=== PATIENT | female | born 1970 | race Caucasian/White ===

== ENCOUNTER → 2016-11-08 | Outpatient (CLI) | payer OTHER | END | disposition home or self-care (01) | LOC: LAB 08:02 | PROVIDERS: ATTEND Internal Medicine | DX: D18.03 Hemangioma of intra-abdominal structures (principal) | CPT/HCPCS: 36415; 82565; 84520 ==

== ENCOUNTER → 2016-12-04 | Outpatient (CLI) | payer OTHER | END | disposition home or self-care (01) | LOC: LAB 07:36 | PROVIDERS: ATTEND Internal Medicine | DX: D18.03 Hemangioma of intra-abdominal structures (principal) | CPT/HCPCS: 36415; 82565; 84520 ==

== ENCOUNTER 2016-12-23 13:47 | Inpatient (IN) | payer OTHER ==
[~2016-12-23] VITALS: Ht 170.2 cm; Wt 77.6 kg
[2016-12-23 14:26] LABS: Basophils # (auto) 0 uL; Basophils % (auto) 0.5 % (0.0-2.0); Eosinophils # (auto) 0.1 uL; Eosinophils % (auto) 1.2 % (0.0-7.0); Hematocrit 38.2 % (36.0-46.0); Hemoglobin 12.7 g/dL (12.2-16.2); Lymphocytes # (auto) 1.3 uL; Mean Corpuscular Hemoglobin 29.3 pg (28.0-32.0); Mean Corpuscular Hgb Conc. 33.3 g/dL (32.0-36.0); Mean Corpuscular Volume 87.9 fL (80.0-100.0); Mean Platelet Volume 9.7 fL (7.4-10.4); Monocytes # (auto) 0.3 uL; Monocytes % (auto) 6.7 % (0.0-12.0); Neutrophils # (auto) 3.3 uL; Neutrophils % (auto) 65.6 % (37.0-80.0); Platelet Count (auto) 240 10^3/uL (140-450); Red Cell Distribution Width 13.1 % (11.6-16.0); White Blood Cell 5.1 10^3/uL (4.4-10.8)
[2016-12-23 15:10] LABS: Albumin 4.1 g/dL (3.4-5.0); BUN/Creatinine Ratio 18.3; Bilirubin, Total 0.6 mg/dL (0.2-1.0); Calcium 8.8 mg/dL (8.5-10.1); Potassium 3.9 mmol/L (3.5-5.1); Total Protein 7.5 g/dL (6.4-8.2)
[2016-12-23 15:48] LABS: Urine Bilirubin Negative (Negative); Urine Blood Negative /uL (Negative); Urine Color Yellow (Yellow); Urine Glucose Normal (Normal); Urine Ketone Negative (Negative); Urine Nitrite Negative (Negative); Urine RBC <1 /hpf (0 - 4); Urine Squamous Epithelial Cell FEW /hpf (<5); Urine Urobilinogen Normal (Negative); Urine pH 5.5 (5.0-8.0)
[2016-12-23 17:37] LABS: INR 0.93 (0.9-1.15); Partial Thromboplastin Time 26.4 sec (22.64-33.71)
[2016-12-23] MEDS ORDERED: cefTRIAXone 1GM/50ML D5W 50 ML IV ONE (19:45)
[2016-12-23] MEDS ORDERED: HYDROcodone-ACET 5/325MG TAB PO PRN (22:45)
[2016-12-23] MEDS ORDERED: ONDANSETRON HCL 4 MG/2 ML VIAL IV PRN (22:45)
[2016-12-23] MEDS ORDERED: ACETAMINOPHEN 325 MG TAB PO PRN (22:45)
[2016-12-23 23:50] VITALS: BP 126/71
[2016-12-24 05:00] VITALS: BP 124/71
[2016-12-24 05:29] LABS: Basophils # (auto) 0 uL; Basophils % (auto) 0.5 % (0.0-2.0); Eosinophils # (auto) 0.1 uL; Eosinophils % (auto) 1.2 % (0.0-7.0); Hematocrit 35.8 % (36.0-46.0); Hemoglobin 11.9 g/dL (12.2-16.2); Lymphocytes # (auto) 1.6 uL; Lymphocytes % (auto) 32.2 % (10.0-50.0); Mean Corpuscular Hemoglobin 29.1 pg (28.0-32.0); Mean Corpuscular Hgb Conc. 33.2 g/dL (32.0-36.0); Mean Corpuscular Volume 87.7 fL (80.0-100.0); Mean Platelet Volume 10.1 fL (7.4-10.4); Monocytes # (auto) 0.4 uL; Monocytes % (auto) 7.4 % (0.0-12.0); Neutrophils # (auto) 2.9 uL; Neutrophils % (auto) 58.7 % (37.0-80.0); Platelet Count (auto) 214 10^3/uL (140-450); Red Cell Distribution Width 12.6 % (11.6-16.0); White Blood Cell 4.9 10^3/uL (4.4-10.8)
[2016-12-24 05:48] LABS: Potassium 3.8 mmol/L (3.5-5.1)
[2016-12-24 05:54] LABS: Albumin 3.3 g/dL (3.4-5.0); Calcium 8.1 mg/dL (8.5-10.1)
[2016-12-24 05:57] LABS: Bilirubin, Total 0.5 mg/dL (0.2-1.0); Total Protein 6.4 g/dL (6.4-8.2)
[2016-12-24 08:00] VITALS: BP 111/62
[2016-12-24 09:00] VITALS: BP 111/62
[2016-12-24] MEDS ORDERED: LEVETIRACETAM 500 MG/5ML ORAL SOLN UD PO SCH (10:00)
[2016-12-24] MEDS: ASPirin 81 mg TAB PO SCH (10:49)
[2016-12-24] MEDS: ENOXAPARIN SOD 40 MG/0.4 ML SYRINGE SC SCH (10:50)
[2016-12-24] MEDS: FAMOTIDINE 20 MG TAB PO SCH ×2 (10:50→21:36)
[2016-12-24] MEDS: LEVETIRACETAM 500 MG TAB PO SCH ×2 (10:59→21:37)
[2016-12-24] MEDS ORDERED: LORazepam 2MG/ML-1ML VIAL IV PRN (13:30)
[2016-12-24 13:44] LABS: Cholesterol 183 mg/dL (< 200); HDL Cholesterol 56 mg/dL (40-59); LDL Cholesterol 115 mg/dL (< 100); Triglycerides 112 mg/dL (< 150)
[2016-12-24 17:00] VITALS: BP 115/64
[2016-12-24] MEDS ORDERED: cefTRIAXone 1GM/50ML D5W 50 ML IV SCH (21:00)
[2016-12-24 22:21] VITALS: BP 121/58
[2016-12-25 05:00] VITALS: BP 108/67
[2016-12-25 08:00] VITALS: BP 110/55
[2016-12-25 09:06] VITALS: BP 110/55
[2016-12-25] MEDS: ASPirin 81 mg TAB PO SCH (10:04)
[2016-12-25] MEDS: FAMOTIDINE 20 MG TAB PO SCH (10:04)
[2016-12-25] MEDS: ENOXAPARIN SOD 40 MG/0.4 ML SYRINGE SC SCH (10:04)
[2016-12-25] MEDS: LEVETIRACETAM 500 MG TAB PO SCH (10:04)
[2016-12-25] MEDS ORDERED: GADOPENTETATE DIMEGLUMINE (10MMOL/20 ML) VIAL IV ONE (10:52)
[2016-12-25 12:00] VITALS: BP 114/79
[2016-12-25 16:41] VITALS: BP 106/69
[2016-12-25 17:19] VITALS: BP 106/69
== END 2016-12-25 18:45 | disposition home or self-care (01) | DRG 149 ==
LOC: ER 13:47 → EDUNIT# 17:48 → WEST WING 17:48
PROVIDERS: ADMIT Nurse Practitioner; ATTEND Internal Medicine
DX: R42 Dizziness and giddiness (principal); E87.0 Hyperosmolality and hypernatremia; N39.0 Urinary tract infection, site not specified; E83.41 Hypermagnesemia; R20.9 Unspecified disturbances of skin sensation; G40.909 Epilepsy, unspecified, not intractable, without status epilepticus; Z80.0 Family history of malignant neoplasm of digestive organs; Z82.0 Family history of epilepsy and other diseases of the nervous system; Z82.49 Family history of ischemic heart disease and other diseases of the circulatory system; Z83.3 Family history of diabetes mellitus; Z79.899 Other long term (current) drug therapy; Z91.041 Radiographic dye allergy status
CPT/HCPCS: 36415; 70450; 70553; 71010; 80053; 80061; 81001; 81025; 83735; 84702; 85025; 85610; 85730; 87086; 93005; 93886; 94761; 95819; 96365; J0696